=== PATIENT | male | born 1970 | race African-American/Black ===

== ENCOUNTER 2021-06-19 08:26 | Day surgery (SDC) | payer BC ==
[2021-06-18 11:02] VITALS: BMI 28.3
[2021-06-19] MEDS ORDERED: GLYCOPYRROLATE 0.2 MG/1 ML VIAL ONE (09:27)
[2021-06-19] MEDS ORDERED: ATROPINE SO4 0.4 MG/1 ML VIAL ONE (09:27)
[2021-06-19 10:20] VITALS: BP 120/78; PULSE 66; TEMP 98
== END 2021-06-19 10:45 | disposition home or self-care (01) ==
LOC: FASU-ENDO 08:26
PROVIDERS: ATTEND Internal Medicine Gastroenterology
PROC: 0DJD8ZZ Inspection of Lower Intestinal Tract, Via Natural or Artificial Opening Endoscopic (ICD-10-PCS; principal; 2021-06-19 09:39)
DX: Z12.11 Encounter for screening for malignant neoplasm of colon (principal)